=== PATIENT | female | born 1955 | race Caucasian/White ===

== ENCOUNTER 2020-12-07 00:22 | Emergency (ER) | payer OTHER ==
[2020-12-07] MEDS ORDERED: DICLOFENAC SODI75 MG PO (09:05)
== END 2020-12-07 09:39 | disposition home or self-care (01) ==
LOC: FER 00:22
DX: M25.552 Pain in left hip (principal); W50.2XXA Accidental twist by another person, initial encounter; Y92.009 Unspecified place in unspecified non-institutional (private) residence as the place of occurrence of the external cause
CPT/HCPCS: 72192; 73502; 73552; J1885